=== PATIENT | female | born 1930 | race Caucasian/White ===

== ENCOUNTER 2016-08-22 09:42 | Inpatient (IN) | payer OTHER ==
[2016-08-22] VITALS (7 sets, daily range): BP systolic 123–172; BP diastolic 54–70
[~2016-08-22] VITALS: Ht 157.5 cm; Wt 65.8 kg
[~2016-08-22 09:42] MED LIST: ASPIR-LOW81 M1 PO; Ascorbic Acid,Ester- PO; COLACE100 MG PO; COUMADIN,JANTOVE4 MG PO; EDARBI40 MG PO; FEOSOL325 MG PO; IPRATROPIUM BRO30 ML BOTH NARES; LIPITOR40 MG PO; LO-DOSE ASPIRIN81 M2 PO; NEXIUM40 MG PO; NORCO 5/3251 TABLET PO; OxyCONTIN PO; Oyst-Cal D, Oscal W/ PO; Prevacid PO; SENOKOT S,PE1 TABLET PO; THERAGRAN1 TABLET PO; TOPROL XL50 MG PO; TYLENOL EXTRA500 MG PO; Toprol XL PO; Tylenol Regular Stre PO; VYTORIN 10/21 TABLET PO; Vicodin,Lortab 5/500 PO; Vicodin,Norco 5/325 PO
[2016-08-22] MEDS ORDERED: PROMETHAZINE HC25 M1 PO (10:18)
[2016-08-23 04:27] VITALS: BP 128/60
[2016-08-23 07:38] VITALS: BP 137/61
[2016-08-23 11:40] VITALS: BP 120/58
== END 2016-08-23 15:02 | disposition home or self-care (01) | DRG 516 ==
LOC: SDC 09:42 → 3EAST 14:43 → 2SOUTH 14:43 → 3EAST 21:13
PROC: 0QU03JZ Supplement Lumbar Vertebra with Synthetic Substitute, Percutaneous Approach (ICD-10-PCS; principal; 2016-08-22)
DX: S32.019A Unspecified fracture of first lumbar vertebra, initial encounter for closed fracture (principal); G71.0 Muscular dystrophy; W19.XXXA Unspecified fall, initial encounter; M46.1 Sacroiliitis, not elsewhere classified; I10 Essential (primary) hypertension; J30.9 Allergic rhinitis, unspecified; K21.9 Gastro-esophageal reflux disease without esophagitis; M81.0 Age-related osteoporosis without current pathological fracture; K57.90 Diverticulosis of intestine, part unspecified, without perforation or abscess without bleeding; E78.5 Hyperlipidemia, unspecified; M15.9 Polyosteoarthritis, unspecified; Z87.891 Personal history of nicotine dependence
CPT/HCPCS: J0330; J0690; J1100; J1170; J2405; J2710; J3010; J3480

== ENCOUNTER 2017-12-01 17:52 | Emergency (ER) | payer OTHER ==
[~2017-12-01] VITALS: Ht 157.5 cm; Wt 65.0 kg
[~2017-12-01 17:52] MED LIST changes: +PROMETHAZINE HC25 M1 PO
[2017-12-01 19:14] LABS: BASOPHIL (%) 0 % (0-1); EOSINOPHIL (%) 0.9 % (0-5); EOSINOPHIL COUNT 0.1 K/uL (0-0.3); HEMATOCRIT 36.7 % (36.0-46.0); HEMOGLOBIN 12.3 G/DL (11.9-15.5); IMMATURE GRANULOCYTE (%) 0.6 % (0.0-0.7); LYMPHOCYTE (%) 10.6 % (15-42); LYMPHOCYTE COUNT 0.6 K/uL (1.0-2.8); MCH 30.4 PG (29.0-34.0); MCHC 33.5 G/DL (30.0-36.0); MCV 90.6 FL (83-99); MONOCYTE (%) 7.2 % (3-12); MONOCYTE COUNT 0.4 K/uL (0-0.8); NEUTROPHIL (%) 80.7 % (45-76); NEUTROPHIL COUNT 4.3 K/uL (1.8-6.4); PLATELET COUNT 214 K/uL (156-360); RBC DIS.WIDTH-CV 15.9 % (11.8-14.6); RBC DIS.WIDTH-SD 52.6 % (39-53); RED BLOOD COUNT 4.05 M/uL (3.80-5.20); WHITE BLOOD COUNT 5.4 K/uL (4.1-10.2)
[2017-12-01 19:22] LABS: ALBUMIN 3.9 g/dL (3.2-4.8); CHLORIDE 102 mEq/L (99-109); POTASSIUM 3.8 mEq/L (3.7-5.4); SODIUM 137 mEq/L (136-147)
[2017-12-01 19:25] LABS: GLUCOSE 95 mg/dL (70-99); TOTAL PROTEIN 7.1 g/dL (6.4-8.3)
[2017-12-01 19:27] LABS: TOTAL BILIRUBIN 0.7 mg/dL (0.0-1.0)
[2017-12-01 19:28] LABS: ALKALINE PHOSPHATASE 147 IU/L (3-129); CREATININE 0.6 mg/dL (0.6-1.3); GFR ESTIMATE (CALCULATED) > 59 mL/min/
[2017-12-01 19:29] LABS: UREA NITROGEN (BUN) 10 mg/dL (9-23)
[2017-12-01 19:30] LABS: AST (GOT) 34 IU/L (2-34)
[2017-12-01 19:31] LABS: ALT (GPT) 37 IU/L (3-49)
[2017-12-01 19:49] LABS: APPEARANCE CLEAR ((CLEAR)); BILIRUBIN NEGATIVE; BLOOD NEGATIVE; COLOR STRAW ((YELLOW)); GLUCOSE (STRIP) NEGATIVE; KETONES 5; LEUKOCYTES NEGATIVE; NITRITE NEGATIVE; PROTEIN (STRIP) NEGATIVE; SPECIFIC GRAVITY 1.012 (1.000-1.030); UCUL ADDED? NO; UROBILINOGEN 0.2 MG/DL (0.2-1.0)
[2017-12-01 23:55] LABS: CREATINE KINASE 225 IU/L (1-294)
[2017-12-02 00:23] VITALS: BP 146/50
== END 2017-12-02 00:25 | disposition home or self-care (01) ==
LOC: EME 17:52
PROVIDERS: Emergency Medicine
DX: R53.1 Weakness (principal); G89.29 Other chronic pain; M54.2 Cervicalgia; E78.5 Hyperlipidemia, unspecified; Z87.891 Personal history of nicotine dependence
CPT/HCPCS: 71046; 80053; 81003; 82550; 83605; 85025; 87040; 93005; 99281; 99285; J2405; J7030